=== PATIENT | female | born 1990 | race Caucasian/White ===

== ENCOUNTER 2021-05-08 10:55 | Inpatient (IN) | payer BC ==
[~2021-05-08 10:55] MED LIST: Bupivacaine 0.25% HCL 30 ML VIAL ONE; Lidocaine 2% MPF 10 ML AMP (For Epidural Use) ONE; Terbutaline Sulfate 1 MG/ML VIAL ONE
[2021-05-08] MEDS ORDERED: Carboprost 250 MCG/ML AMP IM PRN (11:37)
[2021-05-08] MEDS ORDERED: Diphenoxylate HCl/Atropine Tablet PO PRN ×2 (11:37)
[2021-05-08] MEDS ORDERED: Acetaminophen 500 MG TAB PO PRN (11:37)
[2021-05-08] MEDS ORDERED: Misoprostol 200 MCG TAB PR PRN (11:37)
[2021-05-08] MEDS ORDERED: Methylergonovine 0.2 MG/ML VIAL IM PRN (11:37)
[2021-05-08] MEDS ORDERED: Promethazine HCl 25 MG/ML VIAL IM PRN (11:37)
[2021-05-08] MEDS ORDERED: Lidocaine 1% (PF) 30 ML VIAL SC PRN (11:37)
[2021-05-08] MEDS ORDERED: hydrALAZINE 20 MG/ML VIAL SLOW IVP PRN (11:37)
[2021-05-08] MEDS ORDERED: Ondansetron PF 4 MG/2 ML Vial IVP PRN (11:37)
[2021-05-08] MEDS ORDERED: Ibuprofen 800 MG TAB PO PRN (11:37)
[2021-05-08] MEDS ORDERED: NS w/ Oxytocin 30 units 500 ML IV SCH ×2 (11:45)
[2021-05-08] MEDS ORDERED: NS w/ Oxytocin 30 units 500 ML IVPB SCH (11:45)
[2021-05-08] MEDS ORDERED: Lactated Ringer's 1,000 ML IV SCH (11:45)
[2021-05-08 12:53] LABS: Hemoglobin 11.8 g/dL (12.0-15.5); Mean Corpuscular HGB CONC 33.1 g/dL (32.0-36.0); Mean Corpuscular Hemoglobin 29.6 pg (27.0-33.0); Mean Corpuscular Volume 89.7 fl (81.6-98.3); Mean Platelet Volume 12.5 fl (7.4-10.4); Platelet Count 181 10x3/uL (150-450); RBC Distribution Width 11.7 % (11.5-14.5); Red Blood Cell (RBC) Count 3.98 10x6/uL (3.90-5.03); White Blood Cell (WBC) Count 8.4 10x3/uL (3.5-10.5)
[2021-05-08 13:07] VITALS: BMI 26.5
[2021-05-08 13:32] LABS: HIV (1/2) Antibody/Antigen Non-Reactive (NonReactive); HIV 1/2 INDEX 0.08 S/CO (<1.00); Hep B Surf Ag Non-Reactive S/CO (NonReactive)
[2021-05-08 13:33] LABS: Syphilis Antibody Nonreactive (Nonreactive); Syphilis Antibody Index 0.08 S/CO (<1.00 Non-Reactive)
[2021-05-08 13:51] LABS: SARS-CoV-2 NAA Rapid Test Not Detected (NotDetected)
[2021-05-08 14:00] LABS: HBSAg Index 0.24 S/CO (0-0.99)
[2021-05-08] MEDS ORDERED: Fentanyl 2 mcg/Bup 0.1% Cadd 100 ML ONE (23:40)
[2021-05-08] MEDS ORDERED: Fentanyl 100 MCG/2 ML VIAL ONE (23:54)
[2021-05-09] MEDS ORDERED: Fentanyl 2 mcg/Bup 0.1% Cadd 100 ML ONE (08:36)
[2021-05-09] MEDS ORDERED: Bicitra 30 ML UDCUP PO PRN (16:29)
[2021-05-09] MEDS ORDERED: Famotidine/PF 20 mg/2ml Vial SLOW IVP PRN (16:29)
[2021-05-09] MEDS ORDERED: Azithromycin 500 MG in Sodium Chloride 0.9% 250 ML 250 ML IVPB SCH (16:30)
[2021-05-09] MEDS ORDERED: CEFAZOLIN 2 GM in Premix Bag 1 BAG IVPB SCH (16:30)
[2021-05-09] MEDS ORDERED: Phenylephrine 40 MG/NS 250 ML 250 ML ONE (16:36)
[2021-05-09] MEDS ORDERED: Oxytocin 10 UNITS/ML VIAL ONE (16:36)
[2021-05-09] MEDS ORDERED: Dexamethasone 4 mg/ml Vial ONE (16:36)
[2021-05-09] MEDS ORDERED: Ondansetron PF 4 MG/2 ML Vial ONE (16:36)
[2021-05-09] MEDS ORDERED: PHENYLEPHRINE-NS 100 MCG/ML 10 ML SYRINGE ONE (16:36)
[2021-05-09] MEDS ORDERED: Azithromycin 500 MG VIAL ONE (16:38)
[2021-05-09] MEDS ORDERED: Bupivacaine 0.25% HCL 30 ML VIAL ONE (16:56)
[2021-05-09] MEDS ORDERED: Ondansetron PF 4 MG/2 ML Vial IVP PRN ×2 (17:06→18:02)
[2021-05-09] MEDS ORDERED: L&D-Morphine 4 MG/ML VIAL SLOW IVP PRN (17:06)
[2021-05-09] MEDS ORDERED: Naloxone HCl 0.4 mg/ml Vial IV PRN (17:06)
[2021-05-09] MEDS ORDERED: Promethazine HCl 25 MG SUPP PR PRN (17:06)
[2021-05-09] MEDS ORDERED: Promethazine HCl 25 MG/ML VIAL IM PRN ×2 (17:06→18:02)
[2021-05-09] MEDS ORDERED: Ondansetron HCl/PF 4 MG/2 ML Vial IVP PRN (17:06)
[2021-05-09] MEDS ORDERED: diphenhydrAMINE 50 MG/ML VIAL IVP PRN (17:06)
[2021-05-09] MEDS ORDERED: Naloxone HCl 0.4 mg/ml Vial IVP PRN ×2 (17:06)
[2021-05-09] MEDS ORDERED: Hydrocerin (Eucerin) Cream 120 gm Jar TOP PRN (17:06)
[2021-05-09] MEDS ORDERED: Fentanyl 100 MCG/2 ML VIAL SLOW IVP PRN (17:06)
[2021-05-09] MEDS ORDERED: Meperidine HCl/PF 25 MG/ML VIAL SLOW IVP PRN (17:06)
[2021-05-09] MEDS ORDERED: Ketorolac Tromethamine 30 MG/ML VIAL IVP PRN (17:06)
[2021-05-09] MEDS ORDERED: Ketorolac Tromethamine 30 MG/ML VIAL IVP SCH (17:15)
[2021-05-09] MEDS ORDERED: Communication Order-Pharmacy FS SCH (17:15)
[2021-05-09] MEDS ORDERED: Morphine PF 10 MG/10 ML VIAL ONE (17:20)
[2021-05-09] MEDS ORDERED: Fentanyl 100 MCG/2 ML VIAL ONE ×2 (17:39→18:02)
[2021-05-09] MEDS ORDERED: diphenhydrAMINE 25 MG CAP PO PRN (18:02)
[2021-05-09] MEDS ORDERED: Zolpidem Tartrate 5 MG TAB PO PRN (18:02)
[2021-05-09] MEDS ORDERED: Simethicone Chewable 80 MG TAB PO PRN (18:02)
[2021-05-09] MEDS ORDERED: hydrALAZINE 20 MG/ML VIAL SLOW IVP PRN (18:02)
[2021-05-09] MEDS ORDERED: Varicella virus, LIVE 0.5 ML VIAL SC ONE (18:02)
[2021-05-09] MEDS ORDERED: Lanolin Ointment 7 GM TUBE TOP PRN (18:02)
[2021-05-09] MEDS ORDERED: Boostrix 0.5 ML (Tdap) VIAL IM ONE (18:02)
[2021-05-09] MEDS ORDERED: Misoprostol 200 MCG TAB PR PRN (18:02)
[2021-05-09] MEDS ORDERED: Measles/Mumps/Rubella 10 MCG/0.5 ML VIAL SC ONE (18:02)
[2021-05-09] MEDS ORDERED: HYDROcodone/Acetaminophen 5/325 mg Tablet PO PRN ×2 (18:02)
[2021-05-09] MEDS ORDERED: Bisacodyl 10 MG SUPP PR PRN (18:02)
[2021-05-09] MEDS ORDERED: Methylergonovine 0.2 MG/ML VIAL IM PRN (18:02)
[2021-05-09] MEDS ORDERED: NS w/ Oxytocin 30 units 500 ML IV SCH (18:15)
[2021-05-09] MEDS ORDERED: Ibuprofen 800 MG TAB PO SCH (22:00)
[2021-05-10] MEDS ORDERED: Ketorolac Tromethamine 30 MG/ML VIAL IVP PRN (00:18)
[2021-05-10] MEDS ORDERED: Promethazine HCl 25 MG/ML VIAL IM PRN (00:30)
[2021-05-10] MEDS ORDERED: NO PO,IM,IV OR SC NARCOTICS FOR 12HR EXCEPT BY ANESTHESIA PO SCH (00:30)
[2021-05-10] MEDS ORDERED: Ondansetron PF 4 MG/2 ML Vial IVP PRN (00:30)
[2021-05-10] MEDS ORDERED: Promethazine HCl 25 MG SUPP PR PRN (00:30)
[2021-05-10] MEDS ORDERED: Naloxone HCl 0.4 mg/ml Vial IV PRN ×3 (00:30)
[2021-05-10] MEDS ORDERED: Hydrocerin (Eucerin) Cream 120 gm Jar TOP PRN (00:30)
[2021-05-10] MEDS ORDERED: diphenhydrAMINE 50 MG/ML VIAL IVP PRN (00:30)
[2021-05-10 07:25] LABS: Mean Corpuscular HGB CONC 33.3 g/dL (32.0-36.0); Mean Corpuscular Hemoglobin 30.5 pg (27.0-33.0); Mean Corpuscular Volume 91.5 fl (81.6-98.3); Mean Platelet Volume 11.7 fl (7.4-10.4); Platelet Count 142 10x3/uL (150-450); Red Blood Cell (RBC) Count 2.95 10x6/uL (3.90-5.03)
[2021-05-10] MEDS: Lactated Ringer's 1,000 ML IV SCH ×4 (07:33→19:07)
[2021-05-10] MEDS: Docusate Calcium (SURFAK) 240 MG CAP PO SCH ×3 (07:33→21:12)
[2021-05-10] MEDS: Ferrous Sulfate 325 MG TAB PO SCH ×3 (07:33→21:12)
[2021-05-10] MEDS ORDERED: HYDROcodone/Acetaminophen 5/325 mg Tablet PO PRN ×4 (08:20→12:10)
[2021-05-10] MEDS: Prenatal Vitamin 1 TAB PO SCH (08:32)
[2021-05-10] MEDS: HYDROcodone/Acetaminophen 5/325 mg Tablet PO PRN ×3 (08:33→16:42)
[2021-05-10] MEDS ORDERED: Zolpidem Tartrate 5 MG TAB PO PRN (12:10)
[2021-05-10] MEDS: Ibuprofen 800 MG TAB PO SCH (21:13)
[2021-05-11] MEDS: HYDROcodone/Acetaminophen 5/325 mg Tablet PO PRN ×2 (00:13→19:45)
[2021-05-11] MEDS: Lactated Ringer's 1,000 ML IV SCH ×3 (02:31→23:24)
[2021-05-11] MEDS: Ibuprofen 800 MG TAB PO SCH ×3 (05:53→21:39)
[2021-05-11] MEDS ORDERED: Ibuprofen 800 MG TAB PO SCH (06:00)
[2021-05-11] MEDS: Ferrous Sulfate 325 MG TAB PO SCH ×2 (07:49→21:39)
[2021-05-11] MEDS: Prenatal Vitamin 1 TAB PO SCH (07:49)
[2021-05-11] MEDS: Docusate Calcium (SURFAK) 240 MG CAP PO SCH ×2 (07:49→21:39)
[2021-05-12] MEDS: Ibuprofen 800 MG TAB PO SCH ×2 (05:17→15:10)
[2021-05-12] MEDS: HYDROcodone/Acetaminophen 5/325 mg Tablet PO PRN (05:17)
[2021-05-12 07:58] VITALS: BP 107/69; TEMP 97.8
[2021-05-12] MEDS: Prenatal Vitamin 1 TAB PO SCH (09:06)
[2021-05-12] MEDS: Ferrous Sulfate 325 MG TAB PO SCH (09:06)
[2021-05-12] MEDS: Docusate Calcium (SURFAK) 240 MG CAP PO SCH (09:06)
[2021-05-12] MEDS: Lactated Ringer's 1,000 ML IV SCH (09:09)
== END 2021-05-12 15:00 | disposition home or self-care (01) | DRG 788 ==
LOC: CSHLD/OP 10:55 → CSHLD 14:18 → CSHPP 05-09 20:53
PROVIDERS: ADMIT Obstetrics & Gynecology; ATTEND Obstetrics & Gynecology
PROC: 10D00Z1 Extraction of Products of Conception, Low, Open Approach (ICD-10-PCS; principal; 2021-05-09)
PROC: 10H07YZ Insertion of Other Device into Products of Conception, Via Natural or Artificial Opening (ICD-10-PCS; 2021-05-09)
DX: O64.0XX0 Obstructed labor due to incomplete rotation of fetal head, not applicable or unspecified (principal); O76 Abnormality in fetal heart rate and rhythm complicating labor and delivery; O62.0 Primary inadequate contractions; O90.81 Anemia of the puerperium; D64.9 Anemia, unspecified; Z37.0 Single live birth; Z3A.39 39 weeks gestation of pregnancy; Z20.822 Contact with and (suspected) exposure to COVID-19
CPT/HCPCS: 36415; 51702; 85027; 86780; 86850; 86900; 86901; 87340; 87389; 99285; J0456; J0690; J1100; J1885; J2274; J2405; J2590; J3010; J3105; J7050; S0020; U0002

== ENCOUNTER 2023-09-14 02:26 | Inpatient (IN) | payer BC ==
[2023-09-14 03:33] VITALS: BMI 26.2
[2023-09-14] MEDS ORDERED: Bupivacaine 0.25% HCL 30 ML VIAL ONE (08:00)
[2023-09-14] MEDS ORDERED: hydrALAZINE 20 MG/ML VIAL SLOW IVP PRN (11:38)
[2023-09-14] MEDS ORDERED: Ondansetron PF 4 MG/2 ML Vial IVP PRN ×4 (11:38→23:16)
[2023-09-14] MEDS ORDERED: Lidocaine 1% (PF) 30 ML VIAL SC PRN (11:38)
[2023-09-14] MEDS ORDERED: Promethazine HCl 25 MG/ML VIAL IM PRN ×3 (11:38→23:16)
[2023-09-14] MEDS ORDERED: fentaNYL 50 mcg/mL 1 mL Vial SLOW IVP PRN ×2 (11:38→23:16)
[2023-09-14] MEDS ORDERED: Ibuprofen 800 MG TAB PO PRN (11:38)
[2023-09-14] MEDS ORDERED: HYDROcodone/Acetaminophen 5/325 mg Tablet PO PRN ×2 (11:38)
[2023-09-14] MEDS ORDERED: Oxytocin 30 units/NS 500 ML 500 ML IV SCH ×2 (11:45)
[2023-09-14] MEDS ORDERED: Lactated Ringer's 1,000 ML IV SCH (11:45)
[2023-09-14 12:04] LABS: Hematocrit 35.7 % (34.9-44.5); Hemoglobin 12.1 g/dL (12.0-15.5); Mean Corpuscular HGB CONC 33.9 g/dL (32.0-36.0); Mean Corpuscular Hemoglobin 29.2 pg (27.0-33.0); Mean Platelet Volume 11.6 fl (7.4-10.4); Platelet Count 233 10x3/uL (150-450); RBC Distribution Width 14.3 % (11.5-14.5); Red Blood Cell (RBC) Count 4.15 10x6/uL (3.90-5.03); White Blood Cell (WBC) Count 12.8 10x3/uL (3.5-10.5)
[2023-09-14 12:30] LABS: Syphilis Antibody Nonreactive (Nonreactive); Syphilis Antibody Index 0.06 S/CO (<1.00 Non-Reactive)
[2023-09-14 12:31] LABS: HBSAg Index 0.21 S/CO (0-0.99); Hep B Surf Ag - L&D Non-Reactive S/CO (NonReactive)
[2023-09-14] MEDS: fentaNYL/Ropivacaine Epidural 100 ML ONE (13:13)
[2023-09-14] MEDS ORDERED: Naloxone HCl 0.4 mg/ml Vial IVP PRN ×4 (13:59→23:16)
[2023-09-14] MEDS ORDERED: Acetaminophen 325 MG TAB PO PRN (13:59)
[2023-09-14] MEDS ORDERED: Lactated Ringer's 500 ML IV PRN (13:59)
[2023-09-14] MEDS ORDERED: diphenhydrAMINE 50 MG/ML VIAL IVP PRN (13:59)
[2023-09-14] MEDS ORDERED: Moisturizing Cream (Eucerin) 113 GM JAR TOP PRN ×2 (13:59→23:16)
[2023-09-14] MEDS ORDERED: ePHEDrine Sulfate 50 MG/10 ML VIAL SLOW IVP PRN (13:59)
[2023-09-14] MEDS ORDERED: Communication Order-Pharmacy FS SCH ×2 (14:00→23:30)
[2023-09-14] MEDS ORDERED: fentaNYL 2 mcg/Ropivacaine 0.2% Epidural 100 ML CADD EPIDURAL SCH (14:00)
[2023-09-14] MEDS ORDERED: Famotidine/PF 20 mg/2ml Vial SLOW IVP PRN (22:20)
[2023-09-14] MEDS ORDERED: Bicitra 30 ML UDCUP PO PRN (22:20)
[2023-09-14] MEDS ORDERED: Azithromycin 500 MG in Sodium Chloride 0.9% 250 ML 250 ML IVPB SCH (22:30)
[2023-09-14] MEDS ORDERED: CEFAZOLIN 2 GM in Sodium Chloride 0.9% 100 ML IVPB SCH (22:30)
[2023-09-14 23:08] LABS: Analyzer IN Cardio CS NICU; Critical Notified By: CP.PH; Critical Notified Whom: NUR.CSI5; RapidComm Collect By NUR.CSI5; pH (Cord, venous) 7.391 (7.250-7.350)
[2023-09-14] MEDS ORDERED: Meperidine HCl/PF 25 MG (1 mL) VIAL SLOW IVP PRN (23:16)
[2023-09-14] MEDS ORDERED: Promethazine HCl 25 MG SUPP PR PRN (23:16)
[2023-09-14] MEDS ORDERED: HYDROmorphone 0.5 MG/0.5 ML SYRINGE SLOW IVP PRN (23:16)
[2023-09-14] MEDS ORDERED: Naloxone HCl 0.4 mg/ml Vial IV PRN (23:16)
[2023-09-15] MEDS ORDERED: Methylergonovine 0.2 MG/ML VIAL IM PRN (02:05)
[2023-09-15] MEDS ORDERED: Lanolin Ointment 7 GM TUBE TOP PRN (02:05)
[2023-09-15] MEDS ORDERED: Simethicone Chewable 80 MG TAB PO PRN (02:05)
[2023-09-15] MEDS ORDERED: diphenhydrAMINE 25 MG CAP PO PRN (02:05)
[2023-09-15] MEDS ORDERED: hydrALAZINE 20 MG/ML VIAL SLOW IVP PRN (02:05)
[2023-09-15] MEDS ORDERED: Acetaminophen 325 MG TAB PO PRN (02:05)
[2023-09-15] MEDS ORDERED: Misoprostol 200 MCG TAB PR PRN (02:05)
[2023-09-15] MEDS: Dexamethasone 4 mg/ml Vial ONE (03:25)
[2023-09-15] MEDS: Lidocaine 2% MPF 10 ML AMP (For Epidural Use) ONE ×2 (03:25)
[2023-09-15] MEDS: PHENYLEPHRINE-NS 100 MCG/ML 10 ML SYRINGE ONE (03:25)
[2023-09-15] MEDS: CEFAZOLIN 1 GM VIAL ONE (03:25)
[2023-09-15] MEDS: Terbutaline Sulfate 1 MG/ML VIAL ONE (03:25)
[2023-09-15] MEDS: Sterile Water 20 ML ONE (03:25)
[2023-09-15] MEDS: Oxytocin 10 UNITS/ML VIAL ONE (03:25)
[2023-09-15] MEDS: Morphine PF 10 MG/10 ML VIAL ONE (03:26)
[2023-09-15] MEDS: Boostrix 0.5 ML (Tdap) VIAL (>/=7 yrs of age) IM ONE (03:26)
[2023-09-15] MEDS: ePHEDrine Sulfate 50 MG/10 ML VIAL ONE (03:26)
[2023-09-15] MEDS: Ketorolac Tromethamine 30 MG (1 mL) VIAL ONE (03:26)
[2023-09-15 03:45] LABS: Hematocrit 29.3 % (34.9-44.5); Hemoglobin 9.6 g/dL (12.0-15.5); Mean Corpuscular HGB CONC 32.8 g/dL (32.0-36.0); Mean Corpuscular Hemoglobin 28.7 pg (27.0-33.0); Mean Corpuscular Volume 87.7 fl (81.6-98.3); Mean Platelet Volume 11.2 fl (7.4-10.4); Platelet Count 188 10x3/uL (150-450); RBC Distribution Width 14.6 % (11.5-14.5); Red Blood Cell (RBC) Count 3.34 10x6/uL (3.90-5.03); White Blood Cell (WBC) Count 12.3 10x3/uL (3.5-10.5)
[2023-09-15] MEDS ORDERED: Ketorolac Tromethamine 30 MG (1 mL) VIAL IVP PRN ×2 (06:00→07:12)
[2023-09-15] MEDS: Ferrous Sulfate 325 MG TAB PO SCH (09:08)
[2023-09-15] MEDS: Ibuprofen 800 MG TAB PO PRN (09:11)
[2023-09-15] MEDS: Prenatal Vitamin 1 TAB PO SCH (09:14)
[2023-09-15] MEDS: Polyethylene Glycol 3350 17 GM Packet PO SCH (09:14)
[2023-09-15] MEDS ORDERED: HYDROcodone/Acetaminophen 5/325 mg Tablet PO PRN ×2 (14:00)
[2023-09-15] MEDS ORDERED: Ibuprofen 800 MG TAB PO SCH (14:00)
[2023-09-16 09:32] VITALS: BP 96/60; TEMP 98.5
== END 2023-09-16 13:05 | disposition home or self-care (01) | DRG 788 ==
LOC: CSHLD/OP 02:26 → CSHLD 11:53 → CSHPP 09-15 01:40
PROVIDERS: ADMIT Obstetrics & Gynecology; ATTEND Obstetrics & Gynecology
PROC: 10D00Z1 Extraction of Products of Conception, Low, Open Approach (ICD-10-PCS; principal; 2023-09-14)
PROC: 10D17Z9 Manual Extraction of Products of Conception, Retained, Via Natural or Artificial Opening (ICD-10-PCS; 2023-09-14)
DX: O34.211 Maternal care for low transverse scar from previous cesarean delivery (principal); Z37.0 Single live birth; O76 Abnormality in fetal heart rate and rhythm complicating labor and delivery; O69.81X0 Labor and delivery complicated by cord around neck, without compression, not applicable or unspecified; Z3A.40 40 weeks gestation of pregnancy; O48.0 Post-term pregnancy
CPT/HCPCS: 36415; 74018; 82805; 85027; 86780; 86850; 86900; 86901; 87340; J0665; J0690; J1100; J1885; J2274; J2590